=== PATIENT | male | born 1995 | race Two or more races ===

== ENCOUNTER → 2016-11-04 | Outpatient (CLI) | payer OTHER ==
--- NOTE | 2016-11-05 07:59 | REP ---
REASON: Pain after trauma. PRIORS: None. There is a tuft fracture of the first digit of the left foot. Signed by Elbert Arias DO 11/05/2016 09:21 A
== END ==
LOC: M LRY 16:36
PROVIDERS: ATTEND Physician Assistant
DX: S92.502A Displaced unspecified fracture of left lesser toe(s), initial encounter for closed fracture (principal); X58.XXXA Exposure to other specified factors, initial encounter; Y93.9 Activity, unspecified; Y92.9 Unspecified place or not applicable; Y99.8 Other external cause status
CPT/HCPCS: 11730; 73660; G0463